=== PATIENT | female | born 1945 | race Caucasian/White ===

== ENCOUNTER → 2017-03-02 | Outpatient (CLI) | payer MEDICARE, OTHER, BC ==
[~2017-03-02] MED LIST: BAYE81TA7; BUSP15TA47 PO; COUM2.5T17 PO; CRES20TA PO; EFFE150C PO; GLIM4TAB PO; LISI20TA PO; LORA10TA2 PO; LYRI75CA PO; MULTCAP PO; OMEP20TA PO; PERCOCET PO; TOPR25TA PO; TYLE167L PO; VITMAIN OR; janumet OR; lantus insulin SUBQ; metoprolol OR; vitamin D3 OR
--- NOTE | 2017-03-02 12:58 | REPMRS ---
Patient History The patient states she had a clinical breast exam in 02/2017. No known family history of cancer. Taking estrogen for 1 year. Digital Woman Screen Mammo: March 02, 2017 - Exam #: [id number] Bilateral CC and MLO view(s) were taken. Technologist: Pretty Escamilla, Technologist Prior study comparison: February 09, 2013, bilateral screening mammogram, performed at [facility]. FINDINGS: The breast tissue is heterogeneously dense. This may lower the sensitivity of mammography. The patient states that there are no palpable abnormalities or other breast complaints. There has been no change in the appearance of the mammogram from the prior studies. There is a moderate amount of residual fibroglandular tissue which is fairly symmetric. There is no interval development of dominant mass, areas of architectural distortion, or clustered microcalcification typical of malignancy. ASSESSMENT: BI-RADS/ACR category 1 mammogram. Negative. Recommendation Routine screening mammogram in 1 year (for women over age 40). This mammogram was interpreted with the aid of an FDA-approved computer-aided dectection system. A. Negative x-ray reports should not delay biopsy if a dominant or clinically suspicious mass is present. B. Not all cancers are identified by mammography. C. Adenosis and dense breast may obscure an underlying neoplasm. Electronically Signed By: Cesar Prasad M.D. 03/02/17 [id number]
== END ==
LOC: M WHC 11:04
PROVIDERS: ATTEND Nurse Practitioner Family
DX: Z12.31 Encounter for screening mammogram for malignant neoplasm of breast (principal); Z92.23 Personal history of estrogen therapy; B37.3 Candidiasis of vulva and vagina; Z01.419 Encounter for gynecological examination (general) (routine) without abnormal findings; Z12.12 Encounter for screening for malignant neoplasm of rectum
CPT/HCPCS: 82270; 87070; 87077; 87186; G0101; G0202

== ENCOUNTER → 2017-03-02 | Outpatient (REF) | payer MEDICARE, OTHER, BC | LOC: M SFHCWAGY 15:27 | PROVIDERS: ATTEND Nurse Practitioner Family | DX: B37.3 Candidiasis of vulva and vagina (principal) ==

== ENCOUNTER → 2018-03-07 | Outpatient (REF) | payer MEDICARE, OTHER | LOC: M SFHCWAGY 11:11 | DX: Z12.72 Encounter for screening for malignant neoplasm of vagina (principal); B37.3 Candidiasis of vulva and vagina | CPT/HCPCS: G0123 ==

== ENCOUNTER → 2018-03-07 | Outpatient (CLI) | payer MEDICARE, OTHER | LOC: M WHC 10:48 | DX: Z12.31 Encounter for screening mammogram for malignant neoplasm of breast (principal); Z92.23 Personal history of estrogen therapy | CPT/HCPCS: 77067 ==

== ENCOUNTER → 2019-03-09 | Outpatient (REF) | payer MEDICARE, OTHER ==
[~2019-03-09] MED LIST changes: -CRES20TA PO; +CRES20TA2 PO; -EFFE150C PO; +EFFE150C2 PO; -GLIM4TAB PO; +GLIM4TAB3 PO; -LISI20TA PO; +LISI20TA19 PO; +LORA-243 PO; -LORA10TA2 PO; +OMEP-358 PO; -OMEP20TA PO
== END ==
LOC: M SFHCWAGY 12:52 → EEVIPCON 12:52
PROVIDERS: ATTEND Nurse Practitioner Family
DX: R30.0 Dysuria (principal)

== ENCOUNTER → 2019-03-09 | Outpatient (CLI) | payer MEDICARE, OTHER ==
[~2019-03-09] MED LIST changes: -GLIM4TAB3 PO; +GLIM4TAB5 PO
--- NOTE | 2019-03-09 13:33 | REP ---
BILATERAL SCREENING DIGITAL MAMMOGRAM WITH 3D TOMOSYNTHESIS: There are no palpable abnormalities or other breast complaints. The the patient states she had a clinical breast examination February,. The the patient states she performs self-breast examinations zero times per year The Tyrer-Cuzick Score is: 4.6% . Comparison is 02/24/2015. There are scattered areas of fibroglandular density. There is no dominant mass, micro calcific cluster or architectural distortion that would indicate malignancy. There are benign calcifications. There are no additional findings on 3D tomosynthesiss. There is no change from the prior study. Impression: BIRADS/ACR category 2 mammogram. Benign findings. Recommendation: Routine annual screening mammography. This mammogram was interpreted with the aid of a FDA approved computer-aided detection system. A. Negative mammogram reports should not delay biopsy if a dominant or clinically suspicious mass is present. B. Not all breast cancers are identified by mammography or tomosynthesis. C. Adenosis and dense breasts may obscure an underlying neoplasm. Patient letter M1. Electronically Signed by Cesar Prasad MD 03/09/2019 01:24 P
== END ==
LOC: M WHC 10:30
PROVIDERS: ATTEND Nurse Practitioner Family
DX: Z12.31 Encounter for screening mammogram for malignant neoplasm of breast (principal); R92.1 Mammographic calcification found on diagnostic imaging of breast

== ENCOUNTER → 2019-10-11 | Outpatient (REF) | payer MEDICARE, OTHER | LOC: M SFHCWAGY 17:15 | PROVIDERS: ATTEND Nurse Practitioner Family | DX: R30.0 Dysuria (principal) ==

== ENCOUNTER → 2020-10-09 | Outpatient (CLI) | payer MEDICARE, OTHER ==
[~2020-10-09] MED LIST changes: -LISI20TA19 PO; +LISI20TA35 PO
--- NOTE | 2020-10-09 16:36 | REPMRS ---
Patient History The patient states she had a clinical breast exam in September 2020. Patient has history of other cancer at age 72. Family history of pancreatic cancer at age 50 or over in paternal cousin, prostate cancer at age 50 or over in paternal cousin, colorectal cancer at age 50 or over in paternal cousin, breast cancer at age 50 or over in paternal cousin, breast cancer at age 50 or over in paternal cousin. Took estrogen for 3 years. Moderna vaccine #1 07/14/20 left arm. #2 08/12/20 left arm. 10 lb unintentional weight gain. Patient states no breast complaints today. Patient has signed MRS History Sheet. Digital Woman Screen Mammo: October 09, 2020 - Exam #: [id number] Bilateral CC and MLO view(s) were taken. Technologist: RT Kash Prior study comparison: March 09, 2019, bilateral digital woman screen mammo performed at [facility]. March 07, 2018, bilateral digital woman screen mammo performed at [facility]. FINDINGS: There are scattered fibroglandular densities. Screening. Digital screening (2D) mammography was performed bilaterally in the CC and MLO projections. Additionally, breast tomosynthesis (3D mammography) was performed bilaterally in the CC and MLO projections. Todays exam was compared to the prior exams. By history, the patient has no complaints of a palpable breast abnormality or other significant breast complaints. The breasts are unchanged in size and shape. There are no kylah-soft tissue densities or spiculated masses. There is no internal architectural distortion.Once again, stable benign appearing calcifications are seen. There are no suspicious kylah-calcific clusters. Skin thickening or nipple retraction is not present. IMPRESSION: BI-RADS Category 2- Benign Findings. There is no evidence of malignant alteration of the breasts. Followup examination recommended in one year. The Volpara volumetric breast density category is B, there are scattered areas of fibroglandular density. This mammogram was read with the assistance of [employer]an FDA approved computer aided detection system for mammography. The lifetime Tyrer-Cuzick score is 4 % Negative x-ray reports should not delay surgical consultation if a dominant or clinically suspicious mass is present. Not all breast cancers can be identified by mammography. Therefore, we recommend that you continue to perform regular breast self-examination and physical examination and then promptly contact your physician of any concerns or changes. Adenosis and dense breasts may obscure an underlying neoplasm. Assessment: BI-RADS/ACR category 2 mammogram. Benign Findings. Recommendation Routine screening mammogram of both breasts in 1 year. Electronically Signed By: Jhon Fischer DO 10/09/20 [id number]
== END ==
LOC: M WHC 14:18
PROVIDERS: ATTEND Nurse Practitioner Women's Health
DX: Z12.31 Encounter for screening mammogram for malignant neoplasm of breast (principal); Z85.89 Personal history of malignant neoplasm of other organs and systems; Z92.23 Personal history of estrogen therapy; R92.1 Mammographic calcification found on diagnostic imaging of breast

== ENCOUNTER → 2022-02-08 | Outpatient (CLI) | payer MEDICARE, OTHER | LOC: M WHC 11:06 | PROVIDERS: ATTEND Advanced Practice Midwife | DX: Z12.31 Encounter for screening mammogram for malignant neoplasm of breast (principal) ==